=== PATIENT | male | born 1990 | race Caucasian/White ===

== ENCOUNTER 2023-09-17 18:23 | Emergency (ER) | payer OTHER, SELFPAY ==
--- NOTE | ~2023-09-17 | XR_ITS ---
EXAMINATION: XR CHEST CLINICAL INFORMATION: Cough. COMPARISON: None available. TECHNIQUE: 2 views of the chest were obtained. FINDINGS: Heart size is normal. The lungs are clear. No pleural effusion. No pneumothorax. No acute osseous abnormality. XR/XR chest 2V IMPRESSION: No acute cardiopulmonary disease.
[2023-09-17 18:34] VITALS: BP 136/95; PULSE 92; RESP 20; TEMP 36.6; O2SAT 95; BMI 37.7
--- NOTE | 2023-09-17 18:36 | ED.ASTHMA ---
HPI - Asthma General Chief Complaint: Asthma Stated Complaint: Asthma Time Seen by Provider: 09/17/23 20:55 Source: patient Mode of arrival: ambulatory Limitations: no limitations History of Present Illness HPI Narrative: Patient is a 33-year-old male who presents emergency department for evaluation of concern for asthma exacerbation with productive cough with clear phlegm, shortness of breath and intermittent chest tightness. Reports he has been recently experiencing a flare due to construction in his home which is triggering his asthma. He states he does not have a primary care doctor currently so he has been unable to get a prescription refill for his albuterol. He states that he is not taking his Flovent daily as he is supposed to be. He denies any known sick contacts, fevers, chills, thought tingling of the extremities. Related Data Previous Rx's ?Medication ?Instructions ?Recorded albuterol sulfate 90 mcg/actuation 2 puff inhalation Q4-6H PRN 09/17/23 aerosol inhaler shortness of breath or wheezing #6.7 grams prednisone 20 mg tablet 40 mg (2 x 20 mg) PO DAILY 4 days 09/17/23 #8 tabs Allergies Allergy/AdvReac Type Severity Reaction Status Date / Time No Known Allergies Allergy Verified 09/17/23 18:37 Review of Systems Review of Systems: Yes all other systems are reviewed and are negative PMFSH Past Medical History Attestation statement: The following information was validated with the patient. Source: old records reviewed Social History Social History Advance Directives: No Advance Directives Information Provided: No Do you have a plan to hurt others: No Plan Physical Exam Vital Signs: Vital Signs: Last Vital Signs Temp 97.5 F 09/18/23 00:04 Pulse 115 H 09/18/23 00:04 Resp 20 09/18/23 00:04 BP 138/109 H 09/18/23 00:04 Pulse Ox 95 09/18/23 00:04 O2 Del Method Room Air 09/18/23 00:02 BMI result Body Mass Index 37.7 Appearance: Alert.?Oriented to person, place and time. No acute distress.?Normal affect. Eyes: Pupils equal, round and reactive to light.? ENT: Pharynx normal.?? Neck: Normal inspection.? Neck supple.?? CVS: Heart sounds normal. Normal heart rate and rhythm.? Pulses normal.?? Respiratory: No respiratory distress.? Lung sounds with inspiratory and expiratory wheezing bilaterally, O2 saturation 90% on room air while at rest Abdomen: Soft and non-tender. Normoactive bowel sounds. Skin: Skin warm and dry.? Normal skin color.? Extremities: No lower extremity edema.? No calf ttp? Neuro: Moves all extremities spontaneously. Sensation intact bilaterally. Ambulates with normal steady gait. Course Course Course Narrative: This is a Rapid Medical Examination (RME) performed by Trice Jackson PA-C in triage. Full HPI, ROS, assessment and treatment plan per primary provider in the Main ED. 33-year-old male with history of asthma on p.r.n. albuterol at home, former smoker who presents to the ER for evaluation of worsening asthma, productive cough and chest tightness. Symptoms acutely worsened yesterday. He has been getting worked done in his house which seems to exacerbate his asthma. He has been using his albuterol with minimal relief. Bringing up clear phlegm. No fever or chills. Patient is oxygenating well in triage, SpO2 95%. Speaking in complete sentences. He has inspiratory and expiratory wheezes. Plan: Chest x-ray, viral swabs Reevaluation(s) Reevaluation #1: Upon evaluation room air O2 saturation at rest noted to be 90% with a Brown expiratory wheezing. ED bronchodilator protocol was ordered and he received albuterol 7.5 mg nebulizer in addition to oral prednisone. Time: 22:05 Reevaluation #2: Patient reports symptomatic relief at this time, ambulatory O2 trial with O2 saturation maintaining above 93%, requesting discharge home which I feel is reasonable. Inspiratory and expiratory wheezing has resolved. Discussed strict return precautions, sent prescription for albuterol and prednisone to pharmacy. All questions answered. Ambulatory with a steady gait and speaking clear full sentences Time: 23:30 Medications Administered Discontinued Medications Generic Name Dose Route Start Last Admin Trade Name Freq PRN Reason Stop Dose Admin Albuterol Sulfate 5 mg/ 7.5 mg 09/17/23 22:13 09/17/23 22:17 Albuterol Sulfate 2.5 mg INHALE 09/17/23 22:14 7.5 mg ONCE ONE Administration Albuterol Sulfate 2 puff 09/17/23 23:32 09/18/23 00:02 Albuterol Sulfate 90 Mcg 8 Gm Inhaler INHALE 09/17/23 23:33 2 puff ONCE ONE Administration Prednisone 60 mg 09/17/23 22:04 09/17/23 22:54 Prednisone 20 Mg Tablet PO 09/17/23 22:05 60 mg ONCE ONE Administration Medical Decision Making Medical Decision Making [facility] Narrative: Patient is a 33-year-old male past medical history of asthma, recently quit smoking presenting to emergency department expressing concern for asthma exacerbation as per HPI. Exam has inspiratory and expiratory wheezing, had room air O2 saturation at 90% while at rest and speaking. ED brown protocol was ordered, patient received prednisone in addition. CXR was obtained and is without evidence of infiltrate pleural effusions or pneumothorax. Viral testing is negative. Differential Diagnosis Differential Diagnoses: The differential diagnosis associated with the presentation includes (Asthma exacerbation, pneumonia, viral syndrome. Less likely PE, Wells negative) Admission/Observation Consideration of admission/observation: Escalation of care including admission/observation considered (See narrative above for further detail) Lab Data [facility] Lab Attestation statement: I reviewed the patient's lab results. (See narrative above) Labs: Lab Results 09/17/23 Range/Units 18:40 Influenza Type A (PCR) NEGATIVE (Negative) Influenza Type B (PCR) NEGATIVE (Negative) RSV RNA Qual (PCR) NEGATIVE (Negative) SARS-CoV-2 RNA (RT-PCR) NEGATIVE (Negative) Independent Interpretation I performed an independent interpretation of an: Plain X-Ray (See narrative above) Radiology Impression Discussion of test interpretation with radiology: I have reviewed the radiologist's reading. Radiologist Impression: XR/XR chest 2V IMPRESSION: No acute cardiopulmonary disease. Independent Historian Clinical information obtained from an independent historian. History obtained from or confirmed by: Parent External Record Review External record reviewed: Outpatient record Prescription Management I considered prescription management with: Antibiotic (Not suspect acute bacterial etiology for symptoms, rather exacerbation of asthma) Chronic Conditions Patient?s care impacted by: Other (Asthma) Discharge Plan Discharge Clinical Impression: Asthma with acute exacerbation Patient Disposition: Home, Self-Care Instructions: Asthma (ED), How to Use a Metered-Dose Inhaler (ED) Prescriptions: New prednisone 20 mg tablet 40 mg PO DAILY 4 Days Qty: 8 0RF albuterol sulfate 90 mcg/actuation HFA aerosol inhaler 2 puff inhalation Q4-6H PRN (Reason: shortness of breath or wheezing) Qty: 6.7 0RF Referrals: Physician,None [Primary Care Provider] - Interventions: ED Discharge Assessment Last Done: 09/18/23 00:04 Discharge Date/Time: 09/18/23 00:18 Print Language: [place]ian
[2023-09-17 19:25] LABS: Influenza A PCR NEGATIVE (Negative); Influenza B PCR NEGATIVE (Negative); Resp Syncy Virus RNA Qual PCR NEGATIVE (Negative); SARS COV2 PCR INHOUSE NEGATIVE (Negative)
[2023-09-17 22:17] VITALS: PULSE 83; RESP 16; O2SAT 95
[2023-09-17] MEDS: Albuterol Sulfate 5 MG, Albuterol Sulfate (0.083%) 2.5 MG 7.5 MG INHALE (22:17)
[2023-09-17] MEDS: predniSONE 20 MG TABLET 60 MG PO (22:54)
--- NOTE | 2023-09-17 23:10 | MHC.EDTECH ---
Ambulatory trial, pt walked down [address] and back, SPO2 hovered around 96%, dipped to 91% briefly, then up to 97%, MARCOS López was let know about the trial
[2023-09-18 00:02] VITALS: PULSE 115; RESP 20; TEMP 36.4; O2SAT 96
[2023-09-18] MEDS: Albuterol Sulfate 90 MCG 8 GM INHALER 2 PUFF INHALE (00:02)
[2023-09-18 00:04] VITALS: BP 138/109; PULSE 115; RESP 20; TEMP 36.4; O2SAT 95
== END 2023-09-18 00:18 | disposition home or self-care (01) ==
PROVIDERS: Physician Assistant; Emergency Provider Emergency Medicine
DX: J45.901 Unspecified asthma with (acute) exacerbation (principal); R05.9 Cough, unspecified; R06.02 Shortness of breath; Z11.52 Encounter for screening for COVID-19; Z20.822 Contact with and (suspected) exposure to COVID-19
CPT/HCPCS: 0241U; 71046; 94640; 99284